=== PATIENT | female | born 1970 | race Caucasian/White ===

== ENCOUNTER 2017-12-11 08:51 | Emergency (ER) | payer BC, OTHER ==
[~2017-12-11] VITALS: Ht 165.1 cm; Wt 76.7 kg
[~2017-12-11 08:51] MED LIST: AMLO2.5T PO; FLUO40CA8 PO; IBUP600T44 PO; LISI10TA PO; OXYC-57 PO
[2017-12-11 09:01] VITALS: TEMP 36.9; Ht 165.1 cm; Wt 76.7 kg
[2017-12-11] MEDS ORDERED: ONDANSETRON INJ 2 MG/ML 2 ML VIAL IV STA (09:18)
[2017-12-11] MEDS ORDERED: SODIUM CHLORIDE 0.9% 1000ML 1,000 ML IV STA ×2 (09:18)
[2017-12-11] MEDS ORDERED: MoRPHine SULFATE 4 MG/ML 1 ML CARP\\VIAL IV STA ×2 (09:18→10:41)
[2017-12-11 09:39] LABS: BASO % 0.3 %; BASO ABS # 0.02 K/uL (0-0.2); EOS % 0.8 %; EOS ABS # 0.06 K/uL (0-0.5); HEMATOCRIT 38.5 % (37-47); HEMOGLOBIN 13.4 g/dL (12.0-16.0); IG# 0.02 K/uL (0.00-0.02); LYMPH % 31.5 %; LYMPH ABS # 2.36 K/uL (1.2-3.4); MEAN CELL VOLUME 88.7 fL (80-100); MEAN CORPUSCULAR HEMOGLOBIN 30.9 pg (25-34); MEAN CORPUSCULAR HGB CONC 34.8 g/dl (32-36); MEAN PLATELET VOLUME 9.1 fL (7.4-10.4); MONO % 7.6 %; MONO ABS # 0.57 K/uL (0.11-0.59); NEUT % 59.5 %; NEUT ABS # 4.46 K/uL (1.4-6.5); PLATELET COUNT 311 K/uL (130-400); RED CELL DISTRIBUTION WIDTH CV 12.7 % (11.5-14.5); RED CELL DISTRIBUTION WIDTH SD 41.1 fL (36.4-46.3); WHITE BLOOD COUNT 7.49 K/uL (4.8-10.8)
[2017-12-11 09:59] LABS: CALCIUM 8.7 mg/dl (8.5-10.1); CREATININE 0.88 mg/dl (0.60-1.20); POTASSIUM 3.4 mmol/L (3.5-5.1)
--- NOTE | 2017-12-11 10:09 | DIAGNOSTIC IMAGING REPORT ---
ABD/PELVIS WITHOUT FOR STONE HISTORY: 46 years-old Female RIGHT FLANK PAIN, DX WITH KIDNEY STONE acute right flank pain. COMPARISON: None available TECHNIQUE: Multiple axial CT images of the abdomen and pelvis were obtained without the use of IV contrast. A dose lowering technique was used consistent with the principals of WILFREDO. FINDINGS: Mild dependent subsegmental bibasilar atelectasis. Linear scarring of the medial segment right middle lobe. There is no pneumatosis or pneumoperitoneum identified. Imaged inferior cardiac chambers are unremarkable with mild coronary arterial calcifications noted. Prior cholecystectomy. Liver, spleen, pancreas and adrenal glands are within normal limits. Embolization coils are noted within the distribution of the mid and distal splenic vessels. Punctate nonobstructing calculus of the inferior pole right kidney. Mild to moderate right-sided hydroureteronephrosis secondary to an obstructing 5 x 3 x 6 mm calculus of the proximal right ureter at the level of the mid L3 vertebral body. Mild reactive perinephric and periureteral inflammatory stranding. Bladder is partially decompressed. Uterus and adnexa are unremarkable. Surgical clips are seen about the right adnexa and right iliac distribution. Aorta appears normal. No bulky adenopathy. No bowel obstruction or focal bowel wall thickening identified. Underdistention involves the majority of the colon. The appendix appears normal. Soft tissues are unremarkable. Bones appear intact. IMPRESSION: 1. Mild to moderate right-sided hydroureteronephrosis secondary to a 6 mm calculus of the proximal right ureter at the level of the mid L3 vertebral body. Additional punctate nonobstructing calculus involves the inferior pole left kidney. 2. Postoperative findings as above. 3. No bowel obstruction or focal bowel wall thickening. Normal appendix. 4. Incidental note is made of coronary arterial calcifications. The above report was generated using voice recognition software. It may contain grammatical, syntax or spelling errors. Electronically signed by: Mitch Hoffman M.D. 12/11/2017 10:08 AM Dictated Date/Time: 12/11/2017 10:01 AM
[2017-12-11] MEDS ORDERED: OXYC1TAB3 PO (11:42)
[2017-12-11] MEDS ORDERED: ONDA4TAB10 SL (11:42)
--- NOTE | 2017-12-11 11:43 | EMERGENCY ROOM VISIT NOTE ---
ED Visit Note First contact with patient: 09:05 CHIEF COMPLAINT: Right flank pain, nausea and vomiting 2 weeks HISTORY OF PRESENT ILLNESS: Patient is a 46-year-old female with past medical history significant for hypertension, who presents the emergency department for evaluation of right flank pain with associated nausea and vomiting. Patient reports that she began to have symptoms about 2 weeks ago. She had an x-ray with her primary care provider 2 weeks ago than an ultrasound about a week ago which showed a right-sided kidney stone. She reports that she was told it was about 4 mm. They suspected that she will be able to pass the stone on her own. She was given a prescription for naproxen which she has been taking. The right flank pain has progressively worsened, and today she reports feeling acutely nauseous and vomited. She took Tylenol this morning but vomited it up. She relates that she has a sulfa allergy and could not take Flomax. She has noted intermittent hematuria over the last couple of weeks. She denies any dysuria, frequency or urgency. She presently rates her pain a 9/10. She is status post right nephrectomy and cholecystectomy. She does not menstruate status post endometrial ablation. She denies any fevers. REVIEW OF SYSTEMS: Review of systems as per HPI. All other systems reviewed were negative. 10 systems reviewed. PMH: Electronic medical records are reviewed and summarized as above/below. See Problem List. SOCIAL HISTORY: Patient lives at home with her family. Employed. Smokes 1 pack of cigarettes daily.. PHYSICAL EXAM: Vital Signs: Reviewed Nurse's notes. CONSTITUTIONAL: Patient is a well-appearing 46-year-old female who is awake and alert and in no acute distress. EYES: Pupils equal, round, reactive to light and accommodation. EOMs intact without nystagmus. Sclera are anicteric. ENT: Tympanic membranes intact, with normal landmarks. External canals are clear. Oral and nasopharynx are clear. Mucous membranes are moist, no lesions , tongue and gums appear normal. CARDIOVASCULAR: Regular rate and rhythm, with normal S1 and S2, no murmur or gallop or rub is heard. No carotid bruits auscultated. No JVD. Peripheral pulses easily palpable. RESPIRATORY: Breath sounds equal and clear to auscultation without wheezes, rales, or rhonchi heard. Full and equal chest expansion without accessory muscle use or retractions. ABDOMEN: Bowel sounds are present. Abdomen is soft, nondistended, multiple well -healed surgical scars are noted. She has mild mid right abdominal tenderness and tenderness in the suprapubic region, no guarding, rebound or rigidity. INTEGUMENTARY: No lesions or rash, normal skin turgor. LYMPH: No lymphadenopathy. EMERGENCY DEPARTMENT COURSE: The patient was seen and assessed as above. Her old records were reviewed. IV lock was initiated and laboratory studies were collected. She was able to provide a urine sample which was sent for urinalysis. She was hydrated with normal saline solution and medicated with Zofran 4 mg and morphine 4 mg IV. She had a second dose of morphine 4 mg IV when she returned from CT, with good relief of her pain. She was given a urine strainer. Laboratory studies were rather unremarkable. White count is not elevated. H&H is normal. Electrolytes are without significant abnormality. Renal function is normal. Urinalysis notes hematuria only, no other indicators for infection. CT scan of the abdomen and pelvis noted mild to moderate right sided hydroureteronephrosis secondary to a 6 mm calculus in the proximal right ureter around the level of the L3 vertebral body. Other postsurgical changes were noted. I did also obtain a KUB x-ray for urologic follow-up. Patient history and presentation were reviewed with attending physician who agreed with the ED workup and plan. I was able to review the patient's history, presentation and ED workup with JAYLEN Davis, with urology, and arrangements have been made for the patient to be seen in the office on Thursday the . conservative care measures were discussed with the patient. She was issued a urine strainer. She was given a prescription for OxyIR to use for pain through the weekend. Patient was reviewed in the [facility] Prescription Drug Monitoring Program, and there were 2 small [place] prescriptions noted prescribed from her primary care provider in the last couple of weeks. No other concerning findings were noted. The patient was educated on the worrisome signs or symptoms for which she should return to the emergency department through the weekend and was advised to follow-up with urology as scheduled. The patient rated her pain a 0/10 at discharge. Differential diagnoses considered included UTI, pyelonephritis, renal colic, ovarian cyst, ovarian torsion, PID, tubo-ovarian abscess, , ectopic , appendicitis, bowel obstruction, perforation, mass or malignancy, among others. Medication reconciliation: I attest that I have personally reviewed the patient' s current medication list. Blood pressure screening: Patient was found to have a slightly elevated blood pressure due to circumstances. I do not believe that the patient requires hypertension monitoring. ABD/PELVIS WITHOUT FOR STONE HISTORY: 46 years-old Female RIGHT FLANK PAIN, DX WITH KIDNEY STONE acute right flank pain. COMPARISON: None available TECHNIQUE: Multiple axial CT images of the abdomen and pelvis were obtained without the use of IV contrast. A dose lowering technique was used consistent with the principals of WILFREDO. FINDINGS: Mild dependent subsegmental bibasilar atelectasis. Linear scarring of the medial segment right middle lobe. There is no pneumatosis or pneumoperitoneum identified. Imaged inferior cardiac chambers are unremarkable with mild coronary arterial calcifications noted. Prior cholecystectomy. Liver, spleen, pancreas and adrenal glands are within normal limits. Embolization coils are noted within the distribution of the mid and distal splenic vessels. Punctate nonobstructing calculus of the inferior pole right kidney. Mild to moderate right-sided hydroureteronephrosis secondary to an obstructing 5 x 3 x 6 mm calculus of the proximal right ureter at the level of the mid L3 vertebral body. Mild reactive perinephric and periureteral inflammatory stranding. Bladder is partially decompressed. Uterus and adnexa are unremarkable. Surgical clips are seen about the right adnexa and right iliac distribution. Aorta appears normal. No bulky adenopathy. No bowel obstruction or focal bowel wall thickening identified. Underdistention involves the majority of the colon. The appendix appears normal. Soft tissues are unremarkable. Bones appear intact. IMPRESSION: 1. Mild to moderate right-sided hydroureteronephrosis secondary to a 6 mm calculus of the proximal right ureter at the level of the mid L3 vertebral body. Additional punctate nonobstructing calculus involves the inferior pole left kidney. 2. Postoperative findings as above. 3. No bowel obstruction or focal bowel wall thickening. Normal appendix. 4. Incidental note is made of coronary arterial calcifications. Problem List Medical Problems: (1) Hypertension Status: Chronic Surgical Problems: (1) History of cervical spinal arthrodesis Status: Resolved (2) History of cholecystectomy Status: Resolved (3) History of endometrial ablation Status: Resolved (4) History of partial pancreatectomy Status: Resolved (5) History of right oophorectomy Status: Resolved Current/Historical Medications Scheduled Amlodipine (Norvasc), 2.5 MG PO DAILY Lisinopril (Prinivil), 10 MG PO DAILY Scheduled PRN Ondasetron Odt (Zofran Odt), 4 MG SL Q4 PRN for Nausea or Vomiting Oxycodone Immediate Rel Tab (Roxicodone Ir), 1-2 TAB PO Q4H PRN for Severe Pain Allergies Coded Allergies: Sulfa Drugs (Verified Allergy, Severe, HIVES, 12/11/17) Vital Signs Date Time Temp Pulse Resp B/P (MAP) Pulse Ox O2 Delivery O2 Flow Rate FiO2 12/11/17 12:20 82 20 142/87 99 12/11/17 12:06 69 17 140/92 99 Room Air 12/11/17 10:30 65 16 136/98 98 Room Air 12/11/17 09:01 36.9 89 18 140/111 97 Room Air Laboratory Results 12/11/17 09:25 Red Blood Count 4.34, Mean Corpuscular Volume 88.7, Mean Corpuscular Hemoglobin 30.9, Mean Corpuscular Hemoglobin Concent 34.8, Mean Platelet Volume 9.1, Neutrophils (%) (Auto) 59.5, Lymphocytes (%) (Auto) 31.5, Monocytes (%) (Auto) 7.6, Eosinophils (%) (Auto) 0.8, Basophils (%) (Auto) 0.3, Neutrophils # (Auto) 4.46, Lymphocytes # (Auto) 2.36, Monocytes # (Auto) 0.57, Eosinophils # (Auto) 0.06, Basophils # (Auto) 0.02 12/11/17 09:25 Test 12/11/17 09:20 12/11/17 09:25 Urine Color DK YELLOW Urine Appearance CLOUDY (CLEAR) Urine pH 5.0 (4.5-7.5) Urine Specific [place] 1.031 (1.000-1.030) Urine Protein 1+ (NEG) Urine Glucose (UA) NEG (NEG) Urine Ketones NEG (NEG) Urine Occult Blood 3+ (NEG) Urine Nitrite NEG (NEG) Urine Bilirubin NEG (NEG) Urine Urobilinogen NEG (NEG) Urine Leukocyte Esterase NEG (NEG) Urine WBC (Auto) 1-5 /hpf (0-5) Urine RBC (Auto) >30 /hpf (0-4) Urine Hyaline Casts (Auto) 1-5 /lpf (0-5) Urine Epithelial Cells (Auto) >30 /lpf (0-5) Urine Bacteria (Auto) NEG (NEG) Urine Test NEG (NEG) White Blood Count 7.49 K/uL (4.8-10.8) Red Blood Count 4.34 M/uL (4.2-5.4) Hemoglobin 13.4 g/dL (12.0-16.0) Hematocrit 38.5 % (37-47) Mean Corpuscular Volume 88.7 fL (80-100) Mean Corpuscular Hemoglobin 30.9 pg (25-34) Mean Corpuscular Hemoglobin Concent 34.8 g/dl (32-36) Platelet Count 311 K/uL (130-400) Mean Platelet Volume 9.1 fL (7.4-10.4) Neutrophils (%) (Auto) 59.5 % Lymphocytes (%) (Auto) 31.5 % Monocytes (%) (Auto) 7.6 % Eosinophils (%) (Auto) 0.8 % Basophils (%) (Auto) 0.3 % Neutrophils # (Auto) 4.46 K/uL (1.4-6.5) Lymphocytes # (Auto) 2.36 K/uL (1.2-3.4) Monocytes # (Auto) 0.57 K/uL (0.11-0.59) Eosinophils # (Auto) 0.06 K/uL (0-0.5) Basophils # (Auto) 0.02 K/uL (0-0.2) RDW Standard Deviation 41.1 fL (36.4-46.3) RDW Coefficient of Variation 12.7 % (11.5-14.5) Immature Granulocyte % (Auto) 0.3 % Immature Granulocyte # (Auto) 0.02 K/uL (0.00-0.02) Anion Gap 6.0 mmol/L (3-11) Est Creatinine Clear Calc Drug Dose 83.6 ml/min Estimated GFR () 92.6 Estimated GFR (Non- 79.9 BUN/Creatinine Ratio 21.1 (10-20) Calcium Level 8.7 mg/dl (8.5-10.1) Medications Administered Medications (Trade) Dose Ordered Sig/Hernandez Route Start Time Stop Time Status Last Admin Dose Admin Ondansetron HCl (Zofran Inj) 4 mg NOW STAT IV 12/11/17 09:18 12/11/17 09:20 DC 12/11/17 09:43 4 MG Morphine Sulfate (MoRPHine SULFATE INJ) 4 mg NOW STAT IV 12/11/17 09:18 12/11/17 09:20 DC 12/11/17 09:43 4 MG Sodium Chloride 1,000 ml @ 999 mls/hr Q1H1M STAT IV 12/11/17 09:18 12/11/17 10:18 DC 12/11/17 09:43 999 MLS/HR Sodium Chloride 1,000 ml @ 250 mls/hr Q4H STAT IV 12/11/17 09:18 12/11/17 12:58 DC 12/11/17 09:43 250 MLS/HR Morphine Sulfate (MoRPHine SULFATE INJ) 4 mg NOW STAT IV 12/11/17 10:41 12/11/17 10:42 DC 12/11/17 10:51 4 MG Departure Information Impression Primary Impression: Right ureteral calculus Prescriptions Ondasetron Odt (ZOFRAN ODT) 4 Mg Tab 4 MG SL Q4 Y for Nausea or Vomiting, #20 TAB Prov: Margarita Pringle PA 12/11/17 Oxycodone Immediate Rel Tab (ROXICODONE IR) 5 Mg Tab 1-2 TAB PO Q4H Y for Severe Pain, #30 TAB For Initial Treatment Prov: Margarita Pringle PA 12/11/17 Referrals Yanick Knott M.D. (PCP) Merry Parada CRNP Patient Instructions My [facility] Additional Instructions DO NOT drive, drink alcohol, operate machinery, or perform dangerous activities today. You were given medications in the ER that can affect your ability to safely function or operate a vehicle. Oxycodone Immediate Release (OxyIR) 5mg: Take 1-2 pills every four hours for pain. Avoid alcohol, operating machinery or dangerous equipment, working on ladders or roofs, DRIVING, or situations where being under the influence may be dangerous. It is recommended to use an [id number] stool softener such as Colace, 100mg twice daily while taking this medication to avoid constipation. Zofran(odansetron) tablets 4mg: Take one and allow it to dissolve in your mouth every four to six hours as needed for nausea or vomiting. Acetaminophen(Tylenol) may be used for fever or pain. Use 1000mg every six hours as needed. Avoid using more than 4000mg in a 24 hour period. This medication can be taken if you need to drive, work, or perform activities which may be dangerous when taking narcotic pain medication. Strain your urine and collect all the stones or debris for the urologists. Rest and avoid strenuous activity until your stone passes and symptoms resolve. Drink plenty of fluids. Continue current medications. Return to the ER for worsening abdominal or back pain, vomiting, fevers, passing out, or as needed. [facility] as scheduled.
--- NOTE | 2017-12-11 12:05 | DIAGNOSTIC IMAGING REPORT ---
KUB HISTORY: Follow-up study in a patient with acute right-sided flank pain with right ureteral calculus RIGHT URETERAL CALCULUS, FOR UROLOGY F/U COMPARISON: CT abdomen and pelvis 12/11/2017. FINDINGS: The bowel gas pattern is non-obstructive. There is no organomegaly. Unchanged positioning of the 6 mm right ureteral calculus at the level of the mid L3 vertebral body. Previously noted punctate calculus of the inferior pole left kidney is not definitively seen. Surgical clips are noted within the abdominal left upper and right lower quadrants. Cholecystectomy clips also noted. No pneumoperitoneum or pneumatosis. No fracture. IMPRESSION: Unchanged positioning of the 6 mm calculus of the proximal right ureter. Electronically signed by: Mitch Hoffman M.D. 12/11/2017 12:04 PM Dictated Date/Time: 12/11/2017 12:02 PM
[2017-12-11 12:20] VITALS: BP 142/87; PULSE 82; O2SAT 99
== END 2017-12-11 12:40 | disposition home or self-care (01) ==
LOC: C.EDB 08:52
DX: N20.1 Calculus of ureter (principal); I10 Essential (primary) hypertension; F17.200 Nicotine dependence, unspecified, uncomplicated; Z98.890 Other specified postprocedural states; Z90.49 Acquired absence of other specified parts of digestive tract; Z79.899 Other long term (current) drug therapy; Z88.2 Allergy status to sulfonamides

== ENCOUNTER → 2017-12-14 | Outpatient (CLI) | payer OTHER ==
[~2017-12-14] MED LIST changes: +AMLO-110 PO; -FLUO40CA8 PO; -IBUP600T44 PO; +LISI-725 PO; +ONDA4TAB10 SL; +ONDA4TAB46 PO; -OXYC-57 PO; +OXYC1TAB3 PO
--- NOTE | 2017-12-14 16:05 | DIAGNOSTIC IMAGING REPORT ---
CHEST 2 VIEWS ROUTINE CLINICAL HISTORY: Preoperative evaluation. Nephrolithiasis. COMPARISON STUDY: No previous studies for comparison. FINDINGS: Upper abdominal surgical clips are noted as well as postoperative findings within the cervical spine. Lung volumes are normal. No pneumothorax or pleural effusion is noted. Minimal right middle lobe and lingular opacity favors atelectasis. There is no consolidation to suggest pneumonia. Cardiomediastinal silhouette is unremarkable. IMPRESSION: No acute cardiopulmonary findings. Electronically signed by: Que Barraza M.D. 12/14/2017 4:04 PM Dictated Date/Time: 12/14/2017 4:01 PM
== END | disposition home or self-care (01) ==
LOC: C.LAB 15:30
PROVIDERS: ATTEND Nurse Practitioner Family
DX: N20.0 Calculus of kidney (principal)